=== PATIENT | female | born 1995 | race Caucasian/White ===

== ENCOUNTER 2016-05-16 12:56 | Emergency (ER) | payer MEDICAID ==
[~2016-05-16] VITALS: Ht 154.9 cm; Wt 68.5 kg
[2016-05-16 14:19] VITALS: BP 97/53
== END 2016-05-16 14:19 | disposition home or self-care (01) ==
LOC: ED 12:56
DX: N39.0 Urinary tract infection, site not specified (principal)
CPT/HCPCS: J0696

== ENCOUNTER 2017-02-10 12:55 | Emergency (ER) | payer MEDICAID | END 2017-02-10 13:33 | disposition left against medical advice (07) | LOC: ED 12:55 | DX: Z53.21 Procedure and treatment not carried out due to patient leaving prior to being seen by health care provider (principal) ==

== ENCOUNTER 2017-02-11 12:00 | Emergency (ER) | payer MEDICAID ==
[~2017-02-11] VITALS: Ht 154.9 cm; Wt 67.6 kg
[2017-02-11 12:08] VITALS: Ht 154.9 cm; Wt 67.6 kg
[2017-02-11 15:20] VITALS: BP 105/64
== END 2017-02-11 15:21 | disposition home or self-care (01) ==
LOC: ED 12:00
DX: R10.2 Pelvic and perineal pain (principal); R30.0 Dysuria; N89.8 Other specified noninflammatory disorders of vagina
CPT/HCPCS: 87491; 87591; J0696

== ENCOUNTER 2017-04-14 19:06 | Emergency (ER) | payer MEDICAID ==
[~2017-04-14] VITALS: Ht 154.9 cm; Wt 66.7 kg
[2017-04-14 19:36] VITALS: Ht 154.9 cm; Wt 66.7 kg
[2017-04-14 21:22] VITALS: BP 122/70
== END 2017-04-14 21:22 | disposition home or self-care (01) ==
LOC: ED 19:06
DX: A59.9 Trichomoniasis, unspecified (principal)
CPT/HCPCS: J0696; J2001

== ENCOUNTER 2017-10-12 21:36 | Emergency (ER) | payer MEDICAID ==
[~2017-10-12] VITALS: Ht 154.9 cm; Wt 68.9 kg
[2017-10-12 21:55] VITALS: Ht 154.9 cm; Wt 68.9 kg
[2017-10-12 22:42] LABS: BASOPHIL % 0.7 % (0-2); PLATELET COUNT 334 x10^3mcL (130-400); RED CELL DISTRIBUTION WIDTH 12.9 % (11.5-14.5)
[2017-10-12 22:51] LABS: UA SPECIFIC GRAVITY >=1.030 (1.005-1.035); microscopic required? YES; urine erythrocyte 2+ (NEGATIVE)
[2017-10-12 22:54] LABS: CALCIUM 8.9 mg/dL (8.5-10.1); CARBON DIOXIDE 28.4 mmol/L (21-32); CHLORIDE SERUM 106 mmol/L (98-107); CREATININE SERUM 0.9 mg/dL (0.6-1.0); GFR1 > 60 mL/min; GLUCOSE SERUM 104 mg/dL (74-106); POTASSIUM SERUM 3.7 mmol/L (3.5-5.1); SODIUM SERUM 137 mmol/L (136-145)
[2017-10-12 22:55] LABS: LIPASE 155 IU/L (73-393)
[2017-10-12 23:57] VITALS: BP 113/52
== END 2017-10-12 23:57 | disposition home or self-care (01) ==
LOC: ED 21:36
PROVIDERS: Emergency Medicine
DX: N12 Tubulo-interstitial nephritis, not specified as acute or chronic (principal)
CPT/HCPCS: 36415; J0696

== ENCOUNTER 2018-01-15 04:33 | Emergency (ER) | payer MEDICAID ==
[~2018-01-15] VITALS: Ht 154.9 cm; Wt 69.5 kg
[2018-01-15 04:39] VITALS: Ht 154.9 cm; Wt 69.5 kg
[2018-01-15 05:24] LABS: BASOPHIL % 0.8 % (0-2); PLATELET COUNT 344 x10^3mcL (130-400); RED CELL DISTRIBUTION WIDTH 13.3 % (11.5-14.5)
[2018-01-15 05:26] LABS: CALCIUM 8.3 mg/dL (8.5-10.1); CARBON DIOXIDE 27.9 mmol/L (21-32); CHLORIDE SERUM 104 mmol/L (98-107); CREATININE SERUM 0.8 mg/dL (0.6-1.0); GFR1 > 60 mL/min; GLUCOSE SERUM 111 mg/dL (74-106); POTASSIUM SERUM 3.6 mmol/L (3.5-5.1); SODIUM SERUM 136 mmol/L (136-145)
[2018-01-15 05:31] LABS: ALKALINE PHOSPHATASE 82 U/L (46-116); ALT/SGPT 36 U/L (14-59); AST/SGOT 23 U/L (15-37); BILIRUBIN TOTAL 0.24 mg/dL (0.20-1.00); LIPASE 141 IU/L (73-393); TOTAL PROTEIN, SERUM 6.8 g/dL (6.4-8.2)
[2018-01-15 05:32] LABS: ALBUMIN 2.9 g/dL (3.4-5.0)
[2018-01-15 06:33] VITALS: BP 120/64
== END 2018-01-15 06:33 | disposition home or self-care (01) ==
LOC: ED 04:33
PROVIDERS: Emergency Medicine
DX: K59.00 Constipation, unspecified (principal); N39.0 Urinary tract infection, site not specified
CPT/HCPCS: J0696; J1885; J7030

== ENCOUNTER 2018-05-31 09:23 | Emergency (ER) | payer OTHER ==
[~2018-05-31] VITALS: Ht 154.9 cm; Wt 70.8 kg
[2018-05-31 09:35] VITALS: BP 104/67; Ht 154.9 cm; Wt 70.8 kg
[2018-05-31 11:48] LABS: microscopic required? YES; urine erythrocyte TRACE (NEGATIVE)
== END 2018-05-31 11:33 | disposition home or self-care (01) ==
LOC: ED 09:23
PROVIDERS: Emergency Medicine
DX: R10.9 Unspecified abdominal pain (principal); Z87.440 Personal history of urinary (tract) infections

== ENCOUNTER 2019-04-09 00:18 | Emergency (ER) | payer OTHER ==
[~2019-04-09] VITALS: Ht 154.9 cm; Wt 70.3 kg
[2019-04-09 00:28] VITALS: BP 122/83; Ht 154.9 cm; Wt 70.3 kg
== END 2019-04-09 01:25 | disposition home or self-care (01) ==
LOC: ED 00:18
DX: K08.89 Other specified disorders of teeth and supporting structures (principal)

== ENCOUNTER 2019-04-16 21:30 | Emergency (ER) | payer OTHER ==
[~2019-04-16] VITALS: Ht 154.9 cm; Wt 69.5 kg
[2019-04-16 21:40] VITALS: BP 128/88; Ht 154.9 cm; Wt 69.5 kg
== END 2019-04-16 22:04 | disposition home or self-care (01) ==
LOC: ED 21:30
DX: K04.7 Periapical abscess without sinus (principal)

== ENCOUNTER 2019-04-28 17:01 | Emergency (ER) | payer OTHER ==
[~2019-04-28] VITALS: Ht 154.9 cm; Wt 69.4 kg
[2019-04-28 17:07] VITALS: BP 111/75; Ht 154.9 cm; Wt 69.4 kg
== END 2019-04-28 17:47 | disposition home or self-care (01) ==
LOC: ED 17:01
DX: S61.213A Laceration without foreign body of left middle finger without damage to nail, initial encounter (principal); S61.215A Laceration without foreign body of left ring finger without damage to nail, initial encounter; W25.XXXA Contact with sharp glass, initial encounter; Y93.89 Activity, other specified; Y92.89 Other specified places as the place of occurrence of the external cause; Y99.8 Other external cause status

== ENCOUNTER 2019-07-22 19:16 | Emergency (ER) | payer OTHER ==
[~2019-07-22] VITALS: Ht 152.4 cm; Wt 68.0 kg
[2019-07-22 19:24] VITALS: Ht 152.4 cm; Wt 68.0 kg
[2019-07-22 21:18] VITALS: BP 110/89
== END 2019-07-22 21:20 | disposition home or self-care (01) ==
LOC: ED 19:16
DX: N76.0 Acute vaginitis (principal); N39.0 Urinary tract infection, site not specified
CPT/HCPCS: 87491; 87591; J0696